=== PATIENT | male | born 2000 | race African-American/Black ===

== ENCOUNTER 2023-05-03 07:44 | Emergency (ER) | payer OTHER ==
[2023-05-03] MEDS ORDERED: Ibuprofen 200 MG TAB ONE ×2 (08:12→08:13)
[2023-05-03] MEDS ORDERED: Dexamethasone 10 MG/ML VIAL ONE (08:12)
[2023-05-03 09:13] LABS: SARS-CoV-2 NAA Rapid Test Not Detected (NotDetected)
== END 2023-05-03 14:00 | disposition home or self-care (01) ==
LOC: ERS 07:44
DX: R51.9 Headache, unspecified (principal); R05.9 Cough, unspecified
CPT/HCPCS: 99284; J1100

== ENCOUNTER 2023-05-28 00:14 | Emergency (ER) | payer SELFPAY ==
[2023-05-28] MEDS ORDERED: HYDROcodone/Acetaminophen 5/325 mg Tablet ONE (00:53)
== END 2023-05-28 01:14 | disposition home or self-care (01) ==
LOC: ERS 00:14
DX: K02.9 Dental caries, unspecified (principal)
CPT/HCPCS: 99282

== ENCOUNTER 2023-09-22 23:27 | Emergency (ER) | payer SELFPAY | END 2023-09-23 02:27 | LOC: ERS 23:27 | DX: S61.307A Unspecified open wound of left little finger with damage to nail, initial encounter (principal); S90.812A Abrasion, left foot, initial encounter; X58.XXXA Exposure to other specified factors, initial encounter ==